=== PATIENT | male | born 1975 | race Hispanic/Latino ===

== ENCOUNTER 2021-06-14 10:39 | Emergency (ER) | payer SELFPAY ==
[2021-06-14] MEDS ORDERED: ONDANSETRON 4 MG (ODT) TAB ONE (12:07)
[2021-06-14] MEDS ORDERED: MORPHINE 4 MG/ML SYR ONE (12:07)
--- NOTE | 2021-06-14 13:34 | RAD REPORT ---
EXAM DESCRIPTION: RAD - Wrist Left 3 View - 06/14/2021 1:27 pm CLINICAL HISTORY: Deformity;Smash injury COMPARISON: No comparisons FINDINGS: Transversely oriented fracture at the fourth proximal metacarpal metadiaphysis. No wrist f racture is seen. No malalignment of the wrist. Mild radiocarpal joint space narrowing. Mild degenerat ludin changes are present the base of the thumb peer IMPRESSION: No left wrist fracture or malalignment.
--- NOTE | 2021-06-14 13:36 | RAD REPORT ---
EXAM DESCRIPTION: RAD - Hand Left 3 View - 06/14/2021 1:27 pm CLINICAL HISTORY: Swelling;Smash injury COMPARISON: No comparisons FINDINGS: Minimally displaced transverse fracture the fourth proximal metacarpal at the diaphysis. Displaced fourth metacarpal diaphyseal fracture. The fracture displaced by nearly full with posterior ly. There is angulation. There is also a mild component foreshortening IMPRESSION: Posteriorly displaced metacarpal fracture. No intra-articular extension.
--- NOTE | 2021-06-14 13:50 | ER ---
Nurse's Notes [facility] Name: Javier Mitchell Age: 45 yrs Sex: Male : 1975 Arrival Date: 06/14/2021 Time: 10:40 Bed 11 Private MD: Diagnosis: Displaced fracture of base of fourth metacarpal bone, left hand, initial encounter for open fracture Presentation: 06/14 11:28 Chief complaint: Patient states: was working and metal machine part fell on left hand , iw obvious swelling and bruising to left hand, happened 90 minutes ago. Care prior to arrival: None. 11:28 Acuity: YO 3 iw 11:28 Method Of Arrival: Ambulatory iw Historical: - Allergies: 11:29 No Known Allergies; iw - Home Meds: 11: None [Active]; iw - PMHx: 11:29 None; iw - PSHx: 11:29 None; iw - Immunization history:: Client reports receiving the 2nd dose of the Covid vaccine. - Social history:: Smoking status: Patient reports use of chewing tobacco. Vital Signs: 11:30 BP 153 / 99; Pulse 84; Resp 16 S; Temp 98.2; Pulse Ox 96% on R/A; Weight 85.73 kg (M); iw Height 5 ft. 6 in. (167.64 cm); Pain 7/10; 11:30 Body Mass Index 30.51 (85.73 kg, 167.64 cm) iw [place] Coma Score: 11:31 Eye Response: spontaneous(4). Verbal Response: oriented(5). Motor Response: obeys iw commands(6). Total: 15. Trauma Score (Adult): 11:31 Eye Response: spontaneous(1); Verbal Response: oriented(1); Motor Response: obeys iw commands(2); Systolic BP: > 89 mm Hg(4); Respiratory Rate: 10 to 29 per min(4); Zoya Score: 15; Trauma Score: 12 ED Course: 10:40 Patient arrived in ED. mr 11:29 Triage completed. iw 11:31 Arm band placed on. iw 11:33 Stepan Hatfield PA is PHCP. jr8 11:33 Antoine Montes MD is Attending Physician. jr8 11:40 Елена Chahal RN is Primary Nurse. iw 13:28 Wrist Left (3 View) XRAY In Process Unspecified. EDMS 13:28 Hand Left 3 View XRAY In Process Unspecified. EDMS 13:48 Edenilson Arellano MD is Referral Physician. alcira Administered Medications: 11:50 Drug: morphine 4 mg Route: IM; Site: right deltoid; iw 11:51 Drug: Ondansetron 4 mg Route: PO; iw Outcome: 13:49 Discharge ordered by MD. eli 15:04 Patient left the ED. [facility] Signatures: Dispatcher [employer] EDKY Pippa Myers mr Елена Chahal, RN RN Stepan Hatfield PA PA Danica Morse [facility] Corrections: (The following items were deleted from the chart) 11:32 11:30 Pulse 84bpm; Resp 16bpm; Spontaneous; Pulse Ox 96% RA; Temp 98.2F; 85.73 kg iw Measured; Height 5 ft. 6 in.; BMI: 30.5; Pain 7/10; iw
--- NOTE | 2021-06-14 13:50 | EDPHYS ---
Physician Documentation [facility] Name: Javier Mitchell Age: 45 yrs Sex: Male : 1975 Arrival Date: 06/14/2021 Time: 10:40 Bed 11 Private MD: ED Physician Antoine Montes HPI: 06/14 11:40 This 45 yrs old Male presents to ER via Ambulatory with complaints of Crush Injury To jr8 Hand. 11:40 The patient or guardian reports decreased range of motion, pain, swelling, tenderness. jr8 The complaints affect the left hand diffusely. Onset: The symptoms/episode began/occurred acutely, today. Modifying factors: The symptoms are alleviated by nothing, the symptoms are aggravated by movement. Associated signs and symptoms: The patient has no apparent associated signs or symptoms. Severity of symptoms: At their worst the symptoms were moderate, in the emergency department the symptoms are unchanged. The patient has not experienced similar symptoms in the past. The patient has not recently seen a physician. This is a 45-year-old male patient presented to the emergency room with complaints of diffuse left hand pain secondary to a crush injury. Patient stated that he was working and had a piece of large metal land on the palm of his left hand. Stated that it weighs few hundred pounds. Patient has obvious hematoma to the left dorsal hand upon arrival.. Historical: - Allergies: 11:29 No Known Allergies; iw - Home Meds: 11:29 None [Active]; iw - PMHx: 11: None; iw - PSHx: 11:29 None; iw - Immunization history:: Client reports receiving the 2nd dose of the Covid vaccine. - Social history:: Smoking status: Patient reports use of chewing tobacco. ROS: 11:40 Eyes: Negative for injury, pain, redness, and discharge, ENT: Negative for injury, jr8 pain, and discharge, Neck: Negative for injury, pain, and swelling, Cardiovascular: Negative for chest pain, palpitations, and edema, Respiratory: Negative for shortness of breath, cough, wheezing, and pleuritic chest pain, Abdomen/GI: Negative for abdominal pain, nausea, vomiting, diarrhea, and constipation, Back: Negative for injury and pain, Skin: Negative for injury, rash, and discoloration, Neuro: Negative for headache, weakness, numbness, tingling, and seizure. 11:40 MS/extremity: Positive for decreased range of motion, ecchymosis, pain, swelling, tenderness, of the left hand. Exam: 11:40 Constitutional: This is a well developed, well nourished patient who is awake, alert, jr8 and in no acute distress. Cardiovascular: Regular rate and rhythm with a normal S1 and S2. No gallops, murmurs, or rubs. Normal PMI, no JVD. No pulse deficits. Respiratory: Lungs have equal breath sounds bilaterally, clear to auscultation and percussion. No rales, rhonchi or wheezes noted. No increased work of breathing, no retractions or nasal flaring. Skin: Warm, dry with normal turgor. Normal color with no rashes, no lesions, and no evidence of cellulitis. Neuro: Awake and alert, GCS 15, oriented to person, place, time, and situation. Cranial nerves II-XII grossly intact. Motor strength 5/5 in all extremities. Sensory grossly intact. 11:40 Musculoskeletal/extremity: Extremities: grossly normal except: noted in the left hand: Moderate hematoma noted to the dorsum of the left hand over the metacarpal phalangeal region. Decreased ROM passively secondary to pain. Mild decrease in sensation to the tip of the fourth digit. No obvious deformity noted. Radial pulses 2+ bilaterally sensation otherwise normal.. Vital Signs: 11:30 BP 153 / 99; Pulse 84; Resp 16 S; Temp 98.2; Pulse Ox 96% on R/A; Weight 85.73 kg (M); iw Height 5 ft. 6 in. (167.64 cm); Pain 7/10; 11:30 Body Mass Index 30.51 (85.73 kg, 167.64 cm) iw [place] Coma Score: 11:31 Eye Response: spontaneous(4). Verbal Response: oriented(5). Motor Response: obeys iw commands(6). Total: 15. Trauma Score (Adult): 11:31 Eye Response: spontaneous(1); Verbal Response: oriented(1); Motor Response: obeys iw commands(2); Systolic BP: > 89 mm Hg(4); Respiratory Rate: 10 to 29 per min(4); Zoya Score: 15; Trauma Score: 12 MDM: 11:49 Patient medically screened. jr8 13:47 Data reviewed: vital signs, nurses notes, radiologic studies, plain films. Data jr8 interpreted: Pulse oximetry: on room air is 96 %. Interpretation: normal. Counseling: I had a detailed discussion with the patient and/or guardian regarding: the historical points, exam findings, and any diagnostic results supporting the discharge/admit diagnosis, radiology results, the need for outpatient follow up, a hand specialist, to return to the emergency department if symptoms worsen or persist or if there are any questions or concerns that arise at home. 13:49 ED course: [place] [employer] reviewed. Acceptable for pain meds at this time . jr8 06/14 11:31 Order name: Wrist Left (3 View) XRAY; Complete Time: 13:47 iw 06/14 11:31 Order name: Hand Left 3 View XRAY; Complete Time: 13:47 iw 06/14 13:47 Order name: [place] Wrist Splint; Complete Time: 13:54 jr8 Administered Medications: 11:50 Drug: morphine 4 mg Route: IM; Site: right deltoid; iw 11:51 Drug: Ondansetron 4 mg Route: PO; iw Disposition: 15:54 Co-signature as Attending Physician, Antoine Montes MD. rn Disposition Summary: 06/14/21 13:49 Discharge Ordered Location: Home jr8 Problem: new jr8 Symptoms: have improved jr8 Condition: Stable jr8 Diagnosis - Displaced fracture of base of fourth metacarpal bone, left hand, initial encounter jr8 for open fracture Followup: jr8 - With: Edenilson Arellano MD - When: 5 - 6 days - Reason: Recheck today's complaints, Continuance of care, Re-evaluation by your physician Discharge Instructions: - Discharge Summary Sheet jr8 - Metacarpal Fracture jr8 Forms: - Medication Reconciliation Form jr8 - Work release form kb - Thank You Letter jr8 - Antibiotic Education jr8 - Prescription Opioid Use jr8 Prescriptions: - acetaminophen-codeine 300-15 mg Oral tablet - take 2 tablet by ORAL route every 4-6 hours As needed; 20 tablet; Refills: 0, jr8 Product Selection Permitted - Ibuprofen 800 mg Oral Tablet - take 1 tablet by ORAL route every 12 hours As needed take with food; 20 tablet; jr8 Refills: 0, Product Selection Permitted Signatures: Dispatcher [employer] Елена Ortiz RN Antoine Green MD MD rn Roszak, Josh, MARIO MARTIN jr8
[2021-06-14 15:45] VITALS: BP 153/99; TEMP 98.2; O2SAT 96
== END 2021-06-14 15:04 | disposition home or self-care (01) ==
LOC: ER 10:39
DX: S62.315B Displaced fracture of base of fourth metacarpal bone, left hand, initial encounter for open fracture (principal); X58.XXXA Exposure to other specified factors, initial encounter; Y92.89 Other specified places as the place of occurrence of the external cause; Y99.8 Other external cause status; F17.220 Nicotine dependence, chewing tobacco, uncomplicated
CPT/HCPCS: 96372; 99283